=== PATIENT | female | born 1975 | race Caucasian/White ===

== ENCOUNTER → 2018-11-28 | Outpatient (CLI) | payer MEDICARE, MEDICAID ==
[~2018-11-28] MED LIST: ALBUTEROL0.09 MG/A2 IH; AMITRIPTYLINE50 MG PO; ATENOLOL25 MG PO; BACTRIM DS 8001 TA1 PO; DOXYCYCLINE MO100 MG PO; GABAPENTIN300 MG PO; HYDR12.5C PO; K-DUR 20MEQ20 MEQ PO; LOPERAMIDE HCL2 MG PO; MEDROL DOSEPAK4 MG PO; NKHM; NUCYNTA50 MG PO; PROMETHAZINE25 M1 PO; RISPERDAL M-TAB3 MG PO; ROBITUSSIN AC 110 ML PO; SYNTHROID,LEVO50 MCG PO; TAPAZOLE10 MG PO; TOBREX OPHTH S2.5 ML OPH; TOPAMAX50 MG PO; ZESTORETIC 12.51 TA2 PO; Zofran4 MG PO
== END | disposition home or self-care (01) ==
LOC: LAB 13:36
DX: D64.9 Anemia, unspecified (principal); R53.83 Other fatigue

== ENCOUNTER 2021-06-14 09:00 | Emergency (ER) | payer OTHER, MEDICAID ==
[~2021-06-14] VITALS: Ht 162.5 cm; Wt 109.8 kg
[2021-06-14 09:40] VITALS: BP 120/56
== END 2021-06-14 10:08 | disposition home or self-care (01) ==
LOC: ED 09:00
DX: U07.1 COVID-19 (principal); Z79.899 Other long term (current) drug therapy; Z90.49 Acquired absence of other specified parts of digestive tract; Z90.710 Acquired absence of both cervix and uterus; Z98.51 Tubal ligation status

== ENCOUNTER 2021-07-18 01:05 | Emergency (ER) | payer OTHER, MEDICAID ==
[~2021-07-18] VITALS: Ht 170.1 cm; Wt 99.8 kg
[2021-07-18 02:59] LABS: ACETAMINOPHEN (TYLENOL) < 5.0 ug/ml (10-30)
[2021-07-18 03:04] LABS: VALPROIC ACID (DEPAKENE) 100.8 ug/ml (50-100)
[2021-07-18 05:41] LABS: URINE AMPHETAMINES < 1000 (1000ng/ml); URINE BARBITURATES < 200 (200ng/ml); URINE BENZODIAZEPINES < 200 (200ng/ml); URINE CANNABINOIDS (THC) < 50 (50ng/ml); URINE COCAINE < 300 (300ng/ml); URINE METHADONE < 300 (300ng/ml); URINE OPIATES < 300 (300ng/ml)
[2021-07-18 05:46] LABS: URINE PHENCYCLIDINE < 25 (25ng/ml)
[2021-07-18 06:28] VITALS: BP 129/87
== END 2021-07-18 07:18 | disposition left against medical advice (07) ==
LOC: ED 01:05
PROVIDERS: Emergency Medicine
DX: T42.6X1A Poisoning by other antiepileptic and sedative-hypnotic drugs, accidental (unintentional), initial encounter (principal); Y92.89 Other specified places as the place of occurrence of the external cause

== ENCOUNTER → 2021-10-12 | Outpatient (CLI) | payer OTHER, MEDICAID ==
[2021-10-12 13:15] LABS: BUN 8 mg/dl (7-24); CHLORIDE 103 mmol/L (98-107); CREATININE 0.81 mg/dL (0.55-1.02); POTASSIUM 3.8 mmol/L (3.5-5.1); SODIUM 137 mmol/L (136-145)
== END | disposition home or self-care (01) ==
LOC: LAB 12:11
PROVIDERS: ATTEND Psychiatry & Neurology Neurology
DX: R51.9 Headache, unspecified (principal)

== ENCOUNTER → 2022-03-02 | Outpatient (CLI) | payer OTHER, MEDICAID ==
[2022-03-07 18:06] LABS: TESTOSTERONE FREE, (DIRECT) 0.4 pg/mL (0.0-4.2)
== END | disposition home or self-care (01) ==
LOC: LAB 09:52
PROVIDERS: ATTEND Family Medicine
DX: O02.81 Inappropriate change in quantitative human chorionic gonadotropin (hCG) in early pregnancy (principal); R60.9 Edema, unspecified; R63.5 Abnormal weight gain; Z3A.00 Weeks of gestation of pregnancy not specified

== ENCOUNTER → 2022-03-06 | Outpatient (CLI) | payer OTHER, MEDICAID | END | disposition home or self-care (01) | LOC: LAB 08:18 | PROVIDERS: ATTEND Family Medicine | DX: R60.9 Edema, unspecified (principal) ==

== ENCOUNTER → 2022-04-03 | Outpatient (CLI) | payer OTHER, MEDICAID | END | disposition home or self-care (01) | LOC: LAB 08:41 | PROVIDERS: ATTEND Nurse Practitioner Adult Health | DX: F31.32 Bipolar disorder, current episode depressed, moderate (principal) ==

== ENCOUNTER → 2022-12-18 | Outpatient (CLI) | payer MEDICARE | END | disposition home or self-care (01) | LOC: LAB 09:37 | PROVIDERS: ATTEND Nurse Practitioner Adult Health | DX: F31.81 Bipolar II disorder (principal) ==